=== PATIENT | female | born 1955 | race Caucasian/White ===

== ENCOUNTER 2019-03-08 07:39 | Emergency (ER) | payer SELFPAY ==
[~2019-03-08] VITALS: Ht 170.2 cm; Wt 65.0 kg
[~2019-03-08 07:39] MED LIST: BENADRYL 50MG C50 MG PO; NO; TESSALON PER100 MG PO; ZITHROMAX250 MG PO
[2019-03-08] MEDS ORDERED: ALBENZA200 MG PO (08:35)
[2019-03-08 09:02] VITALS: BP 144/90
== END 2019-03-08 09:02 | disposition home or self-care (01) | DRG 373 ==
LOC: ED 07:39
DX: B76.9 Hookworm disease, unspecified (principal); F17.200 Nicotine dependence, unspecified, uncomplicated; T50.996A Underdosing of other drugs, medicaments and biological substances, initial encounter; Z91.120 Patient's intentional underdosing of medication regimen due to financial hardship